=== PATIENT | male | born 1945 | race African-American/Black ===

== ENCOUNTER 2019-11-05 06:56 | Inpatient (IN) ==
[2019-11-05] MEDS ORDERED: HEPARIN DRIP 25,000 UNITS/500 ML PREMIX IV SCH (11:00)
[2019-11-05] MEDS ORDERED: DEXTROSE 50% 25 GM/50 ML VIAL IV PRN (11:21)
[2019-11-05] MEDS ORDERED: GLUCAGON 1 MG VIAL IM PRN (11:21)
[2019-11-05] MEDS ORDERED: CEFUROXIME INJ 1,500 MG in SYRINGE 1 EACH IV ONE (11:21)
[2019-11-05] MEDS: CHLORHEXIDINE 4% SOLN 118 ML BOTTLE TOP SCH ×2 (11:45→21:57)
[2019-11-05 12:20] LABS: ABG Base Excess 0.5 MMOL/L (-2.5-2.5); ABG HCO3 24.9 MMOL/L (20-26); ABG Oxygen Saturation 96.4 % (95-100); ABG PCO2 50.6 MM HG (35-48); ABG PH 7.334 (7.35-7.45); ABG PO2 86.8 MM HG (80-95); ABG TCO2 24.8 MMOL/L (23-27)
[2019-11-05 12:21] LABS: Basophils # 0.1 10*3/uL (0.0-0.2); Basophils % 0.6 % (0.0-0.8); Eosinophils # 0.3 10*3/uL (0.0-0.87); Eosinophils % 2.4 % (0.00-10.9); Hematocrit 29.3 VOL% (42.0-52.0); Hemoglobin 9.2 GM/DL (14.0-18.0); Immature Granulocytes % 0.3 %; Immature Granulocytes Absolute 0.03 #; Lymphocytes # 2.1 10*3/uL (1.4-4.0); Mean Corpuscular HGB Conc 31.4 GM/DL (32-36); Mean Corpuscular Volume 88.8 FL (87-102); Mean Platelet Volume 11.6 FL (9.6-12.0); Monocytes % 11.3 % (1.7-12.7); Neutrophils % 65.4 % (38.7-73.9); Platelet Count 180 T/CUMM (130-400); Red Cell Distribution Width 14.3 % (9.3-17.3); White Blood Count 10.7 T/CUMM (4-12)
[2019-11-05 12:41] LABS: Albumin 3.1 G/DL (3.4-5.0); Bilirubin,Total 0.5 MG/DL (0.2-1.0); CKMB % 4.5 %; Calcium 9.2 MG/DL (8.5-10.1); Total Protein 7.6 G/DL (6.4-8.3)
[2019-11-05 12:44] LABS: Troponin I 11.4 NG/ML (0.00-0.045)
[2019-11-05] MEDS ORDERED: PNEUMOCOCCAL VACCINE (13 VALENT) 0.5 ML SYRINGE IM ONE (12:51)
[2019-11-05] MEDS: INSULIN REGULAR 100 UNIT/ML SUBCUT SCH ×2 (13:55→18:13)
[2019-11-05] MEDS: PANTOPRAZOLE 40 MG VIAL IV SCH (20:52)
[2019-11-05] MEDS: CHLORHEXIDINE 0.12% ORAL RINSE 60 ML BOTTLE SWISH/SPIT SCH (21:58)
[2019-11-06] MEDS: INSULIN REGULAR 100 UNIT/ML SUBCUT SCH ×3 (00:20→22:40)
[2019-11-06 03:41] LABS: ABG Base Excess 0.7 MMOL/L (-2.5-2.5); ABG Oxygen Saturation 99.1 % (95-100); ABG PCO2 46.1 MM HG (35-48); ABG PH 7.364 (7.35-7.45); ABG TCO2 24.5 MMOL/L (23-27)
[2019-11-06] MEDS ORDERED: VANCOMYCIN 1,000 MG VIAL ONE (04:20)
[2019-11-06] MEDS ORDERED: VANCOMYCIN 500 MG VIAL ONE (04:20)
[2019-11-06] MEDS ORDERED: PAPAVERINE 60 MG/2 ML VIAL ONE (04:20)
[2019-11-06] MEDS: CHLORHEXIDINE 4% SOLN 118 ML BOTTLE TOP SCH ×2 (05:12→10:09)
[2019-11-06] MEDS ORDERED: CEFUROXIME INJ 1,500 MG in SYRINGE 1 EACH IV ONE (05:30)
[2019-11-06] MEDS ORDERED: MIDAZOLAM 10 MG/2 ML VIAL ONE (06:14)
[2019-11-06] MEDS ORDERED: VECURONIUM 10 MG VIAL IV ONE ×2 (06:14→14:09)
[2019-11-06] MEDS ORDERED: MINERAL OIL/PETROLATUM OPH OINT 3.5 GM TUBE ONE ×2 (06:14→14:08)
[2019-11-06] MEDS ORDERED: SUFentanil 250 MCG/5 ML AMP ONE (06:14)
[2019-11-06] MEDS ORDERED: FAMOTIDINE 20 MG/2 ML VIAL IV ONE (06:31)
[2019-11-06] MEDS ORDERED: diphenhydrAMINE 50 MG/1 ML VIAL ONE (06:31)
[2019-11-06 07:36] LABS: ABG Base Excess 0.3 MMOL/L (-2.5-2.5); ABG HCO3 24.7 MMOL/L (20-26); ABG Oxygen Saturation 99.9 % (95-100); ABG PCO2 41.9 MM HG (35-48); ABG PH 7.389 (7.35-7.45); ABG TCO2 23.5 MMOL/L (23-27); Glucose Heart Surgery 86 MG/DL (74-106); Hematocrit Heart Surgery 26.3 PERCENT (42-52); Hemoglobin Heart Surgery 8.5 G/DL (14.0-18.0); Ionized Calcium Arterial 1.13 MMOL/L (1.21-1.46); PCO2 Patient Temp Arterial 41.9 MMHG; PH Patient Temp Arterial 7.389; Patient Temperature 37 CELCIUS; Potassium Heart/CVR 4.2 MMOL/L (3.5-5.1); Sodium Heart/CVR 138 MMOL/L (135-145)
[2019-11-06] MEDS ORDERED: PHENYLEPHRINE DRIP 40 MG/250 ML PREMIX IV ONE (09:35)
[2019-11-06] MEDS ORDERED: NITROPRUSSIDE 50 MG/2 ML VIAL ONE (09:35)
[2019-11-06 09:36] LABS: Hematocrit Heart Surgery 18.9 PERCENT (42-52); PH Patient Temp Venous 7.394; PO2 Patient Temp Venous 39.4 MM HG; Potassium Heart/CVR 4.8 MMOL/L (3.5-5.1); VBG Base Excess -0.7 MEQ/L (0-4); VBG HCO3 23.7 MEQ/L (24-28); VBG Oxygen Saturation 79.5 %; VBG PH 7.365; VBG PO2 45.2 MMHG (17-40)
[2019-11-06] MEDS ORDERED: CALCIUM CHLORIDE 1,000 MG/10 ML SYRINGE IV ONE (09:36)
[2019-11-06] MEDS ORDERED: POTASSIUM CHLORIDE RIDER 100 ML IV ONE (09:36)
[2019-11-06] MEDS ORDERED: SODIUM BICARBONATE 50 MEQ/50 ML VIAL IV ONE ×3 (09:36→16:48)
[2019-11-06] MEDS ORDERED: ALBUMIN 5% 12.5 GM/250 ML VIAL IV ONE (09:36)
[2019-11-06] MEDS: SODIUM CHLORIDE 0.9% 1,000 ML IV SCH ×2 (10:09→22:40)
[2019-11-06] MEDS: CHLORHEXIDINE 0.12% ORAL RINSE 60 ML BOTTLE SWISH/SPIT SCH ×2 (10:09→20:50)
[2019-11-06] MEDS: PANTOPRAZOLE 40 MG VIAL IV SCH ×2 (10:09→20:50)
[2019-11-06 10:11] LABS: Hemoglobin Heart Surgery 6.7 G/DL (14.0-18.0); PCO2 Patient Temp Venous 30.6 MM HG; PH Patient Temp Venous 7.449; PO2 Patient Temp Venous 37.7 MM HG; Potassium Heart/CVR 4.3 MMOL/L (3.5-5.1); VBG Base Excess -2.2 MEQ/L (0-4); VBG HCO3 22.4 MEQ/L (24-28); VBG Oxygen Saturation 82.4 %; VBG PCO2 35.4 MMHG (41-51); VBG PH 7.405; VBG PO2 46.3 MMHG (17-40)
[2019-11-06 10:15] LABS: Apearance,Urine CLEAR (Clear); Bilirubin,Urine Negative (Negative); Blood, Urine Moderate mg/dL (Negative); Glucose,Urine (UA) Negative (Negative); Ketones,Urine Negative (Negative); Nitrite,Urine Negative (Negative); Protein,Urine 100 MG/DL; RBC,Urine 6 /HPF (0-4); Squamous Epithelial Cell,Urine Occasional /HPF (0-10); Urine Color Yellow (Yellow); Urine Specific Gravity 1.009 (1.001-1.035); Urine Urobilinogen < 2.0 EU/DL (0.2-1.0); WBC,Urine 5 /HPF (0-6)
[2019-11-06 10:38] LABS: PCO2 Patient Temp Venous 30.1 MM HG; PH Patient Temp Venous 7.435; PO2 Patient Temp Venous 33.9 MM HG; Potassium Heart/CVR 4.5 MMOL/L (3.5-5.1); VBG Base Excess -3.4 MEQ/L (0-4); VBG HCO3 21.3 MEQ/L (24-28); VBG Oxygen Saturation 73.4 %; VBG PCO2 33.1 MMHG (41-51); VBG PH 7.406
[2019-11-06 10:39] LABS: Hemoglobin Heart Surgery 6.4 G/DL (14.0-18.0)
[2019-11-06] MEDS ORDERED: MANNITOL 100 GM/500 ML BAG IV ONE (11:16)
[2019-11-06] MEDS ORDERED: DEXTROSE 5% KCL 20 MEQ 20 MEQ/1,000 ML BAG IV ONE (11:16)
[2019-11-06] MEDS ORDERED: LIDOCAINE 2% 5 ML VIAL ONE (11:16)
[2019-11-06] MEDS ORDERED: HEPARIN 10,000 UNIT/10 ML VIAL ONE (11:17)
[2019-11-06] MEDS ORDERED: PROTAMINE SULFATE 50 MG/5 ML VIAL IV ONE ×3 (11:17→13:13)
[2019-11-06] MEDS ORDERED: MAGNESIUM SULFATE 5 GM/10 ML VIAL IV ONE (11:17)
[2019-11-06] MEDS ORDERED: methylPREDNISolone SOD SUC 1,000 MG/8 ML VIAL ONE (11:17)
[2019-11-06] MEDS ORDERED: ALBUMIN 25% 25 GM/100 ML VIAL IV ONE (11:17)
[2019-11-06] MEDS ORDERED: FUROSEMIDE 20 MG/2 ML VIAL ONE (11:17)
[2019-11-06] MEDS ORDERED: PROTAMINE SULFATE 250 MG/25 ML VIAL IV ONE (11:17)
[2019-11-06] MEDS ORDERED: THROMBIN TOPICAL (RECOMBINANT) 5,000 UNIT VIAL TOP ONE (11:26)
[2019-11-06 11:31] LABS: ABG Base Excess -3.9 MMOL/L (-2.5-2.5); ABG HCO3 21.2 MMOL/L (20-26); ABG PCO2 29.7 MM HG (35-48); ABG PH 7.427 (7.35-7.45); ABG TCO2 17.8 MMOL/L (23-27); Glucose Heart Surgery 172 MG/DL (74-106); Hematocrit Heart Surgery 30.1 PERCENT (42-52); Hemoglobin Heart Surgery 9.7 G/DL (14.0-18.0); Ionized Calcium Arterial 1.17 MMOL/L (1.21-1.46); PCO2 Patient Temp Arterial 29.7 MMHG; PH Patient Temp Arterial 7.427; Patient Temperature 37 CELCIUS; Potassium Heart/CVR 4.5 MMOL/L (3.5-5.1); Sodium Heart/CVR 136 MMOL/L (135-145)
[2019-11-06] MEDS: SODIUM CHLORIDE 0.45% 1,000 ML IV SCH ×2 (13:00)
[2019-11-06] MEDS ORDERED: ACETAMINOPHEN 650 MG SUPP RECTAL PRN (13:07)
[2019-11-06] MEDS ORDERED: POTASSIUM CHLORIDE RIDER 20 MEQ in PREMIX 1 EACH IV PRN (13:07)
[2019-11-06] MEDS ORDERED: VECURONIUM 10 MG VIAL IV PRN ×2 (13:07)
[2019-11-06] MEDS ORDERED: INSULIN REGULAR 100 UNIT/ML IV PRN (13:07)
[2019-11-06] MEDS ORDERED: INSULIN REGULAR DRIP 100 ML IV SCH (13:07)
[2019-11-06] MEDS ORDERED: INSULIN REGULAR 100 UNIT/ML IV ONE (13:07)
[2019-11-06] MEDS ORDERED: MORPHINE 10 MG/1 ML VIAL IV PRN (13:07)
[2019-11-06] MEDS ORDERED: CHLORHEXIDINE 4% SOLN 118 ML BOTTLE TOP PRN (13:07)
[2019-11-06] MEDS ORDERED: MAGNESIUM SULF RIDER 2 GM in PREMIX 1 EACH IV PRN (13:07)
[2019-11-06] MEDS ORDERED: MAGNESIUM SULF RIDER 4 GM in PREMIX 1 EACH IV PRN (13:07)
[2019-11-06] MEDS ORDERED: ONDANSETRON 4 MG/2 ML VIAL IV PRN (13:07)
[2019-11-06] MEDS ORDERED: CALCIUM CHLORIDE 1,000 MG/10 ML SYRINGE IV PRN (13:07)
[2019-11-06] MEDS ORDERED: MIDAZOLAM 10 MG/2 ML VIAL IV PRN (13:07)
[2019-11-06] MEDS ORDERED: POTASSIUM CHLORIDE RIDER 10 MEQ in PREMIX 1 EACH IV PRN (13:07)
[2019-11-06] MEDS ORDERED: LACTATED RINGERS 250 ML IV PRN (13:07)
[2019-11-06] MEDS ORDERED: NITROPRUSSIDE 100 MG in DEXTROSE 5% 250 ML IV PRN (13:07)
[2019-11-06] MEDS ORDERED: DEXTROSE 10% 250 ML BAG IV PRN ×2 (13:13)
[2019-11-06 13:39] LABS: ABG Base Excess -3.7 MMOL/L (-2.5-2.5); ABG HCO3 21.3 MMOL/L (20-26); ABG Oxygen Saturation 99.3 % (95-100); ABG PCO2 36.4 MM HG (35-48); ABG PH 7.371 (7.35-7.45); Glucose Heart Surgery 170 MG/DL (74-106); Potassium Heart/CVR 4.4 MMOL/L (3.5-5.1)
[2019-11-06 13:41] LABS: Basophils % 0.2 % (0.0-0.8); Eosinophils # 0.1 10*3/uL (0.0-0.87); Eosinophils % 0.3 % (0.00-10.9); Hematocrit 20.3 VOL% (42.0-52.0); Hemoglobin 6.5 GM/DL (14.0-18.0); Immature Granulocytes % 1.2 %; Immature Granulocytes Absolute 0.18 #; Lymphocytes # 0.7 10*3/uL (1.4-4.0); Lymphocytes % 4.6 % (21.2-54.2); Mean Corpuscular Volume 89.8 FL (87-102); Mean Platelet Volume 11.2 FL (9.6-12.0); Neutrophils % 86.7 % (38.7-73.9); Platelet Count 193 T/CUMM (130-400); Red Blood Count 2.26 MC/CUMM (3.8-5.5); White Blood Count 14.9 T/CUMM (4-12)
[2019-11-06 13:54] LABS: INR 1.2; PT Patient Result 12.5 SECS (9.6-12.2); Partial Thromboplastin Time 26.1 SECS (20.8-36.0)
[2019-11-06] MEDS: PHENYLEPHRINE DRIP 40 MG/250 ML PREMIX IV PRN ×2 (13:58→22:00)
[2019-11-06] MEDS ORDERED: SEVOFLURANE 1 UNIT/15 MINUTE INH ONE (14:08)
[2019-11-06] MEDS ORDERED: ePHEDrine 50 MG/ML AMP ONE (14:08)
[2019-11-06] MEDS ORDERED: PHENYLEPHRINE DRIP 20 MG/250 ML PREMIX IV ONE (14:08)
[2019-11-06] MEDS ORDERED: HEPARIN/NACL 0.9% 2 UNITS/ML 500 ML IV ONE (14:08)
[2019-11-06] MEDS ORDERED: CALCIUM CHLORIDE 1,000 MG/10 ML VIAL IV ONE (14:08)
[2019-11-06] MEDS ORDERED: SODIUM CHLORIDE 0.9% 100 ML IV ONE (14:09)
[2019-11-06] MEDS ORDERED: SODIUM CHLORIDE 0.9% 2,000 ML IV ONE (14:09)
[2019-11-06] MEDS ORDERED: AMINOCAPROIC ACID 5,000 MG/20 ML VIAL ONE (14:09)
[2019-11-06] MEDS ORDERED: SODIUM CHLORIDE 0.9% 250 ML IV ONE (14:09)
[2019-11-06 14:12] LABS: Troponin I 12.1 NG/ML (0.00-0.045)
[2019-11-06 14:13] LABS: Albumin 2.5 G/DL (3.4-5.0); Bilirubin,Total 0.9 MG/DL (0.2-1.0); Calcium 9.6 MG/DL (8.5-10.1)
[2019-11-06] MEDS: MIDAZOLAM 2 MG/2 ML VIAL IV PRN ×3 (14:50→23:18)
[2019-11-06 15:24] LABS: Band Neutrophils 1 % (0-10); Lymphocytes 3 % (20-55); Platelet Estimate Adequate; Segmented Neutrophils 91 % (50-85); Total Cells Counted 100
[2019-11-06 16:06] LABS: ABG Base Excess -6.6 MMOL/L (-2.5-2.5); ABG HCO3 18.7 MMOL/L (20-26); ABG Oxygen Saturation 95.9 % (95-100); ABG PCO2 36.3 MM HG (35-48); ABG PH 7.329 (7.35-7.45); ABG TCO2 19.8 MMOL/L (23-27); Glucose Heart Surgery 137 MG/DL (74-106); Hemoglobin Heart Surgery 8.8 G/DL (14.0-18.0); Potassium Heart/CVR 4.4 MMOL/L (3.5-5.1)
[2019-11-06] MEDS: MORPHINE 4 MG/1 ML VIAL IV PRN ×2 (16:59→21:22)
[2019-11-06 20:14] LABS: ABG Base Excess -8.7 MMOL/L (-2.5-2.5); ABG HCO3 17.4 MMOL/L (20-26); ABG Oxygen Saturation 97.9 % (95-100); ABG PCO2 34.6 MM HG (35-48); ABG PH 7.299 (7.35-7.45); ABG TCO2 15.7 MMOL/L (23-27); Glucose Heart Surgery 116 MG/DL (74-106); Hematocrit Heart Surgery 29.2 PERCENT (42-52); Hemoglobin Heart Surgery 9.4 G/DL (14.0-18.0); Potassium Heart/CVR 5.1 MMOL/L (3.5-5.1)
[2019-11-06] MEDS ORDERED: SODIUM BICARBONATE 50 MEQ/50 ML VIAL IV PRN (20:30)
[2019-11-06] MEDS: CEFUROXIME INJ 1,500 MG in SYRINGE 1 EACH IV SCH (20:51)
[2019-11-06 21:22] LABS: CKMB % 7.8 %
[2019-11-06 21:24] LABS: Troponin I 19.8 NG/ML (0.00-0.045)
[2019-11-06 22:16] LABS: ABG Base Excess -4.6 MMOL/L (-2.5-2.5); ABG HCO3 20.6 MMOL/L (20-26); ABG Oxygen Saturation 98.4 % (95-100); ABG PH 7.343 (7.35-7.45); ABG TCO2 19.1 MMOL/L (23-27); Glucose Heart Surgery 89 MG/DL (74-106); Hematocrit Heart Surgery 29.1 PERCENT (42-52); Hemoglobin Heart Surgery 9.4 G/DL (14.0-18.0)
[2019-11-07 01:45] LABS: ABG Base Excess -6.1 MMOL/L (-2.5-2.5); ABG HCO3 19.4 MMOL/L (20-26); ABG PCO2 35.2 MM HG (35-48); ABG PH 7.341 (7.35-7.45); ABG TCO2 17.6 MMOL/L (23-27); Glucose Heart Surgery 134 MG/DL (74-106); Hematocrit Heart Surgery 28.9 PERCENT (42-52); Hemoglobin Heart Surgery 9.3 G/DL (14.0-18.0)
[2019-11-07 01:49] LABS: Potassium Heart/CVR 6.1 MMOL/L (3.5-5.1)
[2019-11-07] MEDS ORDERED: INSULIN REGULAR 100 UNIT/ML IV ONE (01:56)
[2019-11-07] MEDS ORDERED: SODIUM BICARBONATE 50 MEQ/50 ML VIAL IV ONE (01:57)
[2019-11-07] MEDS ORDERED: DEXTROSE 10% 250 ML BAG IV ONE (01:57)
[2019-11-07] MEDS: PHENYLEPHRINE DRIP 40 MG/250 ML PREMIX IV PRN ×2 (02:27→10:00)
[2019-11-07] MEDS: MORPHINE 4 MG/1 ML VIAL IV PRN ×5 (04:05→23:35)
[2019-11-07 04:45] LABS: ABG Base Excess -4.9 MMOL/L (-2.5-2.5); ABG HCO3 20.4 MMOL/L (20-26); ABG Oxygen Saturation 97.9 % (95-100); ABG PCO2 36.3 MM HG (35-48); ABG PH 7.351 (7.35-7.45); ABG TCO2 17.7 MMOL/L (23-27); Glucose Heart Surgery 150 MG/DL (74-106); Hemoglobin Heart Surgery 12.7 G/DL (14.0-18.0); Potassium Heart/CVR 4.7 MMOL/L (3.5-5.1)
[2019-11-07 04:56] LABS: Basophils % 0.1 % (0.0-0.8); Hematocrit 25.2 VOL% (42.0-52.0); Immature Granulocytes % 0.7 %; Immature Granulocytes Absolute 0.13 #; Lymphocytes # 1.3 10*3/uL (1.4-4.0); Lymphocytes % 7.1 % (21.2-54.2); Mean Corpuscular HGB Conc 33.7 GM/DL (32-36); Mean Corpuscular Volume 88.1 FL (87-102); Mean Platelet Volume 12.4 FL (9.6-12.0); NRBC # 0.03 10*3/uL; Neutrophils % 81.1 % (38.7-73.9); Platelet Count 163 T/CUMM (130-400); Red Cell Distribution Width 14.8 % (9.3-17.3); White Blood Count 17.8 T/CUMM (4-12)
[2019-11-07 05:01] LABS: Hemoglobin 8.5 GM/DL (14.0-18.0); Red Blood Count 2.86 MC/CUMM (3.8-5.5)
[2019-11-07 05:08] LABS: Albumin 2.4 G/DL (3.4-5.0); Bilirubin,Direct 0.22 MG/DL (0.0-0.20); Bilirubin,Total 0.5 MG/DL (0.2-1.0); Calcium 8.2 MG/DL (8.5-10.1); Osmolality,Calculated 299.4 MOS/KG (273-304); Total Protein 5.5 G/DL (6.4-8.3)
[2019-11-07 05:12] LABS: Troponin I 21.7 NG/ML (0.00-0.045)
[2019-11-07 05:17] LABS: INR 1.2; PT Patient Result 12.7 SECS (9.6-12.2); Partial Thromboplastin Time 26.8 SECS (20.8-36.0)
[2019-11-07] MEDS: ALBUMIN 5% 12.5 GM in PREMIX 1 EACH IV PRN ×2 (05:53→11:10)
[2019-11-07] MEDS ORDERED: GLUCAGON 1 MG VIAL IM PRN (06:30)
[2019-11-07] MEDS ORDERED: SODIUM CHLORIDE 0.9% 250 ML IV PRN (06:33)
[2019-11-07 07:53] LABS: ABG Base Excess -5.3 MMOL/L (-2.5-2.5); ABG HCO3 20.1 MMOL/L (20-26); ABG Oxygen Saturation 98.3 % (95-100); ABG PCO2 37.9 MM HG (35-48); ABG PH 7.334 (7.35-7.45); ABG TCO2 18.8 MMOL/L (23-27); Glucose Heart Surgery 132 MG/DL (74-106); Hematocrit Heart Surgery 25.6 PERCENT (42-52); Hemoglobin Heart Surgery 8.2 G/DL (14.0-18.0); Potassium Heart/CVR 5.4 MMOL/L (3.5-5.1)
[2019-11-07] MEDS: INSULIN REGULAR 100 UNIT/ML SUBCUT SCH ×4 (08:09→20:03)
[2019-11-07] MEDS: PANTOPRAZOLE 40 MG VIAL IV SCH ×2 (08:35→20:41)
[2019-11-07] MEDS: CEFUROXIME INJ 1,500 MG in SYRINGE 1 EACH IV SCH ×2 (08:36→20:41)
[2019-11-07] MEDS: CHLORHEXIDINE 0.12% ORAL RINSE 60 ML BOTTLE SWISH/SPIT SCH ×2 (08:40→20:41)
[2019-11-07 11:49] LABS: ABG Base Excess -0.4 MMOL/L (-2.5-2.5); ABG HCO3 24.1 MMOL/L (20-26); ABG Oxygen Saturation 98.5 % (95-100); ABG PH 7.433 (7.35-7.45); ABG TCO2 20.9 MMOL/L (23-27); Glucose Heart Surgery 128 MG/DL (74-106); Hematocrit Heart Surgery 34.8 PERCENT (42-52); Hemoglobin Heart Surgery 11.3 G/DL (14.0-18.0); Potassium Heart/CVR 3.9 MMOL/L (3.5-5.1)
[2019-11-07] MEDS: SODIUM CHLORIDE 0.45% 1,000 ML IV SCH ×2 (13:00)
[2019-11-07] MEDS: MIDAZOLAM 2 MG/2 ML VIAL IV PRN (13:34)
[2019-11-07] MEDS ORDERED: AMIODARONE 150 MG/3 ML VIAL ONE (13:36)
[2019-11-07] MEDS ORDERED: AMIODARONE INJ 150 MG in DEXTROSE 5% 100 ML IV ONE (13:46)
[2019-11-07] MEDS ORDERED: AMIODARONE 450 MG/9 ML VIAL IV ONE (13:49)
[2019-11-07] MEDS ORDERED: AMIODARONE INJ 450 MG in DEXTROSE 5% 241 ML IV SCH ×2 (14:00→20:00)
[2019-11-07 15:09] LABS: ABG HCO3 22.1 MMOL/L (20-26); ABG Oxygen Saturation 92.2 % (95-100); ABG PCO2 35.2 MM HG (35-48); ABG PH 7.416 (7.35-7.45); ABG PO2 67.9 MM HG (80-95); ABG TCO2 23.2 MMOL/L (23-27); Glucose Heart Surgery 137 MG/DL (74-106); Hemoglobin Heart Surgery 9.6 G/DL (14.0-18.0); Potassium Heart/CVR 3.8 MMOL/L (3.5-5.1)
[2019-11-07 16:22] LABS: CKMB % 4.6 %
[2019-11-07 16:37] LABS: ABG Base Excess -1.2 MMOL/L (-2.5-2.5); ABG HCO3 22.7 MMOL/L (20-26); ABG Oxygen Saturation 94.2 % (95-100); ABG PCO2 34.8 MM HG (35-48); ABG PH 7.433 (7.35-7.45); ABG PO2 75.1 MM HG (80-95); ABG TCO2 23.8 MMOL/L (23-27); Glucose Heart Surgery 126 MG/DL (74-106); Hemoglobin Heart Surgery 9.2 G/DL (14.0-18.0)
[2019-11-07 18:47] LABS: ABG Base Excess -1.5 MMOL/L (-2.5-2.5); ABG HCO3 23.1 MMOL/L (20-26); ABG Oxygen Saturation 95.3 % (95-100); ABG PCO2 36.7 MM HG (35-48); ABG PH 7.402 (7.35-7.45); ABG PO2 76.3 MM HG (80-95); ABG TCO2 20.3 MMOL/L (23-27); Glucose Heart Surgery 149 MG/DL (74-106); Hematocrit Heart Surgery 35.7 PERCENT (42-52); Hemoglobin Heart Surgery 11.6 G/DL (14.0-18.0); Potassium Heart/CVR 4.1 MMOL/L (3.5-5.1)
[2019-11-07 19:45] LABS: ABG Base Excess -1.3 MMOL/L (-2.5-2.5); ABG HCO3 23.2 MMOL/L (20-26); ABG Oxygen Saturation 93.7 % (95-100); ABG PCO2 40.8 MM HG (35-48); ABG PH 7.373 (7.35-7.45); ABG PO2 71.2 MM HG (80-95); ABG TCO2 21.9 MMOL/L (23-27)
[2019-11-08] MEDS: INSULIN REGULAR 100 UNIT/ML SUBCUT SCH ×6 (00:22→20:10)
[2019-11-08 03:55] LABS: Basophils % 0.1 % (0.0-0.8); Eosinophils % 0.1 % (0.00-10.9); Hematocrit 25.9 VOL% (42.0-52.0); Hemoglobin 8.3 GM/DL (14.0-18.0); Immature Granulocytes Absolute 0.15 #; Lymphocytes # 0.8 10*3/uL (1.4-4.0); Lymphocytes % 5.4 % (21.2-54.2); Mean Corpuscular Volume 91.5 FL (87-102); Mean Platelet Volume 11.9 FL (9.6-12.0); NRBC # 0.07 10*3/uL; Neutrophils % 81.4 % (38.7-73.9); Platelet Count 107 T/CUMM (130-400); Red Blood Count 2.83 MC/CUMM (3.8-5.5); Red Cell Distribution Width 15.3 % (9.3-17.3); White Blood Count 15.6 T/CUMM (4-12)
[2019-11-08 03:56] LABS: ABG Base Excess -1.7 MMOL/L (-2.5-2.5); ABG HCO3 22.9 MMOL/L (20-26); ABG Oxygen Saturation 93.5 % (95-100); ABG PCO2 43.9 MM HG (35-48); ABG PH 7.344 (7.35-7.45); ABG PO2 71.2 MM HG (80-95); ABG TCO2 22.3 MMOL/L (23-27); Glucose Heart Surgery 132 MG/DL (74-106); Hematocrit Heart Surgery 26.5 PERCENT (42-52); Hemoglobin Heart Surgery 8.5 G/DL (14.0-18.0); Potassium Heart/CVR 4.6 MMOL/L (3.5-5.1)
[2019-11-08 04:16] LABS: Albumin 2.7 G/DL (3.4-5.0); Bilirubin,Direct 0.23 MG/DL (0.0-0.20); Bilirubin,Total 0.5 MG/DL (0.2-1.0); Calcium 8.2 MG/DL (8.5-10.1); Osmolality,Calculated 286.8 MOS/KG (273-304); Total Protein 5.7 G/DL (6.4-8.3)
[2019-11-08] MEDS ORDERED: AMIODARONE 150 MG/3 ML VIAL ONE (04:48)
[2019-11-08] MEDS ORDERED: DILTIAZEM 50 MG/10 ML VIAL IV ONE (04:48)
[2019-11-08] MEDS ORDERED: DILTIAZEM 25 MG/5 ML VIAL IV ONE (04:49)
[2019-11-08] MEDS ORDERED: AMIODARONE INJ 50 MG in DEXTROSE 5% 100 ML IV ONE (05:00)
[2019-11-08] MEDS ORDERED: oxyCODONE/ACETAMINOPHEN 5-325 MG TABLET PO PRN (09:32)
[2019-11-08] MEDS: ALPRAZolam 0.5 MG TABLET PO SCH ×2 (09:55→20:11)
[2019-11-08] MEDS: AMIODARONE 200 MG TABLET PO SCH ×2 (09:56→20:11)
[2019-11-08] MEDS: PANTOPRAZOLE 40 MG VIAL IV SCH ×2 (09:56→20:11)
[2019-11-08] MEDS: ASPIRIN EC 81 MG TABLET PO SCH (09:56)
[2019-11-08] MEDS: CHLORHEXIDINE 0.12% ORAL RINSE 60 ML BOTTLE SWISH/SPIT SCH ×2 (10:00→20:11)
[2019-11-08] MEDS: ATORVASTATIN 80 MG TABLET PO SCH (20:11)
[2019-11-09] MEDS: INSULIN REGULAR 100 UNIT/ML SUBCUT SCH ×3 (00:08→09:12)
[2019-11-09] MEDS: MORPHINE 4 MG/1 ML VIAL IV PRN (00:36)
[2019-11-09 03:48] LABS: Basophils % 0.2 % (0.0-0.8); Eosinophils # 0.1 10*3/uL (0.0-0.87); Eosinophils % 0.4 % (0.00-10.9); Hematocrit 23.4 VOL% (42.0-52.0); Hemoglobin 7.8 GM/DL (14.0-18.0); Immature Granulocytes % 1.8 %; Immature Granulocytes Absolute 0.28 #; Lymphocytes # 0.9 10*3/uL (1.4-4.0); Lymphocytes % 5.7 % (21.2-54.2); Mean Corpuscular HGB Conc 33.3 GM/DL (32-36); Mean Corpuscular Volume 91.4 FL (87-102); Mean Platelet Volume 12.4 FL (9.6-12.0); Monocytes % 13.2 % (1.7-12.7); NRBC # 0.21 10*3/uL; Neutrophils % 78.7 % (38.7-73.9); Platelet Count 115 T/CUMM (130-400); Red Blood Count 2.56 MC/CUMM (3.8-5.5); Red Cell Distribution Width 15.7 % (9.3-17.3); White Blood Count 15.8 T/CUMM (4-12)
[2019-11-09 04:21] LABS: Albumin 2.6 G/DL (3.4-5.0); Bilirubin,Direct 0.19 MG/DL (0.0-0.20); Bilirubin,Total 0.5 MG/DL (0.2-1.0); Calcium 8.5 MG/DL (8.5-10.1); Total Protein 6.1 G/DL (6.4-8.3)
[2019-11-09] MEDS ORDERED: SODIUM CHLORIDE 0.9% 1,000 ML IV PRN (08:16)
[2019-11-09] MEDS: PANTOPRAZOLE 40 MG VIAL IV SCH (09:07)
[2019-11-09] MEDS: ALPRAZolam 0.5 MG TABLET PO SCH ×2 (09:10→20:44)
[2019-11-09] MEDS: ASPIRIN EC 81 MG TABLET PO SCH (09:10)
[2019-11-09] MEDS: COLCHICINE 0.6 MG CAPSULE PO SCH (09:10)
[2019-11-09] MEDS: CHOLECALCIFEROL 1,000 UNIT TABLET PO SCH (09:11)
[2019-11-09] MEDS: CHLORHEXIDINE 0.12% ORAL RINSE 60 ML BOTTLE SWISH/SPIT SCH ×2 (09:11→20:45)
[2019-11-09] MEDS: AMIODARONE 200 MG TABLET PO SCH (09:11)
[2019-11-09] MEDS ORDERED: SODIUM CHLOR 0.45% KCL 20 MEQ 20 MEQ/1,000 ML BAG IV SCH (10:45)
[2019-11-09] MEDS ORDERED: ALUMINUM/MAGNES/SIMETH MAX STR 30 ML UDCUP PO PRN (10:45)
[2019-11-09] MEDS ORDERED: GLUCAGON 1 MG VIAL IM PRN (10:45)
[2019-11-09] MEDS ORDERED: ONDANSETRON 4 MG/2 ML VIAL IV PRN (10:45)
[2019-11-09] MEDS ORDERED: POTASSIUM CHLORIDE 20 MEQ TABLET PO PRN (10:45)
[2019-11-09] MEDS ORDERED: ACETAMINOPHEN 325 MG TABLET PO PRN (10:45)
[2019-11-09] MEDS ORDERED: MAGNESIUM SULF RIDER 2 GM in PREMIX 1 EACH IV PRN (10:45)
[2019-11-09] MEDS ORDERED: MAGNESIUM SULF RIDER 4 GM in PREMIX 1 EACH IV PRN (10:45)
[2019-11-09] MEDS ORDERED: ZALEPLON 5 MG CAPSULE PO PRN (10:45)
[2019-11-09] MEDS ORDERED: DEXTROSE 10% 250 ML BAG IV PRN (10:45)
[2019-11-09] MEDS: SEVELAMER CARBONATE 800 MG TABLET PO SCH ×2 (12:56→17:51)
[2019-11-09] MEDS: MULTIVITAMIN (BEROCCA) TABLET PO SCH (14:47)
[2019-11-09] MEDS ORDERED: AMIODARONE INJ 100 MG in DEXTROSE 5% 100 ML IV ONE (17:22)
[2019-11-09] MEDS: CINACALCET 30 MG TABLET PO SCH (17:53)
[2019-11-09] MEDS: AMIODARONE INJ 450 MG in DEXTROSE 5% 241 ML IV SCH (18:06)
[2019-11-09] MEDS: ATORVASTATIN 80 MG TABLET PO SCH (20:44)
[2019-11-10 05:40] LABS: Basophils % 0.2 % (0.0-0.8); Eosinophils # 0.3 10*3/uL (0.0-0.87); Eosinophils % 2.5 % (0.00-10.9); Hematocrit 29.5 VOL% (42.0-52.0); Immature Granulocytes % 2.1 %; Immature Granulocytes Absolute 0.25 #; Lymphocytes # 1.1 10*3/uL (1.4-4.0); Lymphocytes % 8.7 % (21.2-54.2); Mean Corpuscular HGB Conc 32.9 GM/DL (32-36); Mean Corpuscular Volume 93.1 FL (87-102); Mean Platelet Volume 12.6 FL (9.6-12.0); Neutrophils % 72.5 % (38.7-73.9); Platelet Count 126 T/CUMM (130-400); Red Blood Count 3.17 MC/CUMM (3.8-5.5); Red Cell Distribution Width 15.3 % (9.3-17.3); White Blood Count 12.2 T/CUMM (4-12)
[2019-11-10 05:41] LABS: Hemoglobin 9.7 GM/DL (14.0-18.0)
[2019-11-10 05:58] LABS: Alanine Aminotransferase 370 U/L (16-61); Albumin 2.5 G/DL (3.4-5.0); Alkaline Phosphatase 50 U/L (45-117); Aspartate Amino Transferase 156 U/L (0-37); Bilirubin,Indirect 0.4 MG/DL (0.0-1.0); Blood Urea Nitrogen 55 MG/DL (7-18); Calcium 8.2 MG/DL (8.5-10.1); Estimated Glom Filtration Rate 8 ML/MIN; Glucose 94 MG/DL (74-106); Osmolality,Calculated 282.2 MOS/KG (273-304); Total Protein 6.4 G/DL (6.4-8.3)
[2019-11-10] MEDS ORDERED: FUROSEMIDE 40 MG/4 ML VIAL IV ONE (06:00)
[2019-11-10] MEDS: SEVELAMER CARBONATE 800 MG TABLET PO SCH ×3 (09:10→16:11)
[2019-11-10] MEDS: COLCHICINE 0.6 MG CAPSULE PO SCH (09:10)
[2019-11-10] MEDS: ASPIRIN EC 81 MG TABLET PO SCH (09:11)
[2019-11-10] MEDS: DOCUSATE SODIUM 100 MG CAPSULE PO SCH (09:11)
[2019-11-10] MEDS: METOPROLOL SUCCINATE XL 25 MG TABLET PO SCH (09:11)
[2019-11-10] MEDS: CHOLECALCIFEROL 1,000 UNIT TABLET PO SCH (09:11)
[2019-11-10] MEDS: PANTOPRAZOLE 40 MG TABLET PO SCH (09:11)
[2019-11-10] MEDS: FERROUS SULFATE 325 MG TABLET PO SCH (09:11)
[2019-11-10] MEDS: ALPRAZolam 0.5 MG TABLET PO SCH ×2 (09:11→20:39)
[2019-11-10] MEDS: AMIODARONE INJ 450 MG in DEXTROSE 5% 241 ML IV SCH (09:41)
[2019-11-10] MEDS: CHLORHEXIDINE 0.12% ORAL RINSE 60 ML BOTTLE SWISH/SPIT SCH ×2 (10:13→20:36)
[2019-11-10] MEDS: AMIODARONE 200 MG TABLET PO SCH ×2 (10:13→20:36)
[2019-11-10] MEDS: MULTIVITAMIN (BEROCCA) TABLET PO SCH (13:26)
[2019-11-10] MEDS: ALBUTEROL/IPRATROPIUM 3 ML NEB RESP TX SCH ×2 (14:52→20:08)
[2019-11-10] MEDS: CINACALCET 30 MG TABLET PO SCH (16:11)
[2019-11-10] MEDS: ATORVASTATIN 80 MG TABLET PO SCH (20:35)
[2019-11-11] MEDS: ALBUTEROL/IPRATROPIUM 3 ML NEB RESP TX SCH ×4 (00:32→19:48)
[2019-11-11 05:33] LABS: Basophils % 0.2 % (0.0-0.8); Eosinophils # 0.4 10*3/uL (0.0-0.87); Eosinophils % 2.9 % (0.00-10.9); Hemoglobin 9.4 GM/DL (14.0-18.0); Immature Granulocytes % 1.8 %; Immature Granulocytes Absolute 0.22 #; Lymphocytes # 1.4 10*3/uL (1.4-4.0); Lymphocytes % 11.2 % (21.2-54.2); Mean Corpuscular HGB Conc 32.4 GM/DL (32-36); Mean Corpuscular Volume 94.5 FL (87-102); Monocytes % 15.5 % (1.7-12.7); NRBC # 0.03 10*3/uL; Neutrophils % 68.4 % (38.7-73.9); Platelet Count 146 T/CUMM (130-400); Red Blood Count 3.07 MC/CUMM (3.8-5.5); Red Cell Distribution Width 15.7 % (9.3-17.3); White Blood Count 12.1 T/CUMM (4-12)
[2019-11-11 05:55] LABS: Alanine Aminotransferase 268 U/L (16-61); Albumin 2.5 G/DL (3.4-5.0); Alkaline Phosphatase 52 U/L (45-117); Aspartate Amino Transferase 86 U/L (0-37); Bilirubin,Indirect 0.7 MG/DL (0.0-1.0); Blood Urea Nitrogen 69 MG/DL (7-18); Calcium 8.1 MG/DL (8.5-10.1); Estimated Glom Filtration Rate 6 ML/MIN; Glucose 86 MG/DL (74-106); Osmolality,Calculated 286.2 MOS/KG (273-304); Total Protein 6.3 G/DL (6.4-8.3)
[2019-11-11] MEDS: METOPROLOL SUCCINATE XL 25 MG TABLET PO SCH (09:00)
[2019-11-11] MEDS: DOCUSATE SODIUM 100 MG CAPSULE PO SCH (09:01)
[2019-11-11] MEDS: PANTOPRAZOLE 40 MG TABLET PO SCH (09:01)
[2019-11-11] MEDS: SEVELAMER CARBONATE 800 MG TABLET PO SCH ×3 (09:01→17:15)
[2019-11-11] MEDS: AMIODARONE 200 MG TABLET PO SCH ×2 (09:01→21:14)
[2019-11-11] MEDS: CHOLECALCIFEROL 1,000 UNIT TABLET PO SCH (09:01)
[2019-11-11] MEDS: FERROUS SULFATE 325 MG TABLET PO SCH (09:01)
[2019-11-11] MEDS: ASPIRIN EC 81 MG TABLET PO SCH (09:01)
[2019-11-11] MEDS: COLCHICINE 0.6 MG CAPSULE PO SCH (09:01)
[2019-11-11] MEDS: ALPRAZolam 0.5 MG TABLET PO SCH ×2 (09:02→21:14)
[2019-11-11] MEDS ORDERED: BISACODYL 5 MG TABLET PO ONE (09:08)
[2019-11-11] MEDS: MAGNESIUM HYDROXIDE SUSP 30 ML UDCUP PO PRN (09:27)
[2019-11-11] MEDS: LOSARTAN 25 MG TABLET PO SCH (09:42)
[2019-11-11] MEDS: CHLORHEXIDINE 0.12% ORAL RINSE 60 ML BOTTLE SWISH/SPIT SCH ×2 (10:51→21:14)
[2019-11-11] MEDS: MULTIVITAMIN (BEROCCA) TABLET PO SCH (11:24)
[2019-11-11] MEDS: CINACALCET 30 MG TABLET PO SCH (17:15)
[2019-11-11] MEDS ORDERED: LACTULOSE 20 GM/30 ML UDCUP PO PRN (17:19)
[2019-11-11] MEDS ORDERED: ALBUTEROL/IPRATROPIUM 3 ML NEB RESP TX PRN ×2 (18:06→18:14)
[2019-11-11] MEDS ORDERED: FUROSEMIDE 40 MG/4 ML VIAL IV ONE (18:07)
[2019-11-11] MEDS: ATORVASTATIN 80 MG TABLET PO SCH (21:14)
[2019-11-12] MEDS: ALBUTEROL/IPRATROPIUM 3 ML NEB RESP TX SCH ×4 (00:17→19:24)
[2019-11-12 05:31] LABS: Calcium 7.9 MG/DL (8.5-10.1); Osmolality,Calculated 290.4 MOS/KG (273-304)
[2019-11-12] MEDS: COLCHICINE 0.6 MG CAPSULE PO SCH (08:03)
[2019-11-12] MEDS: LOSARTAN 25 MG TABLET PO SCH (08:03)
[2019-11-12] MEDS: CHOLECALCIFEROL 1,000 UNIT TABLET PO SCH (08:03)
[2019-11-12] MEDS: POLYETHYLENE GLYCOL POWDER 17 GM PACK PO SCH (08:04)
[2019-11-12] MEDS: DOCUSATE SODIUM 100 MG CAPSULE PO SCH (08:04)
[2019-11-12] MEDS: ALPRAZolam 0.5 MG TABLET PO SCH ×2 (08:04→21:19)
[2019-11-12] MEDS: CHLORHEXIDINE 0.12% ORAL RINSE 60 ML BOTTLE SWISH/SPIT SCH ×2 (08:04→21:19)
[2019-11-12] MEDS: ASPIRIN EC 81 MG TABLET PO SCH (08:04)
[2019-11-12] MEDS: SEVELAMER CARBONATE 800 MG TABLET PO SCH ×3 (08:04→16:23)
[2019-11-12] MEDS: FERROUS SULFATE 325 MG TABLET PO SCH (08:04)
[2019-11-12] MEDS: PANTOPRAZOLE 40 MG TABLET PO SCH (08:04)
[2019-11-12] MEDS: MULTIVITAMIN (BEROCCA) TABLET PO SCH (13:16)
[2019-11-12] MEDS: CINACALCET 30 MG TABLET PO SCH (16:23)
[2019-11-12] MEDS: ATORVASTATIN 80 MG TABLET PO SCH (21:19)
[2019-11-13] MEDS: ALBUTEROL/IPRATROPIUM 3 ML NEB RESP TX SCH ×4 (00:45→18:48)
[2019-11-13 05:37] LABS: Basophils % 0.1 % (0.0-0.8); Eosinophils # 0.4 10*3/uL (0.0-0.87); Eosinophils % 2.6 % (0.00-10.9); Hemoglobin 9.3 GM/DL (14.0-18.0); Immature Granulocytes % 1.5 %; Lymphocytes % 7.4 % (21.2-54.2); Mean Corpuscular Volume 97.1 FL (87-102); Mean Platelet Volume 11.4 FL (9.6-12.0); Monocytes % 12.9 % (1.7-12.7); Neutrophils % 75.5 % (38.7-73.9); Platelet Count 182 T/CUMM (130-400); Red Blood Count 3.09 MC/CUMM (3.8-5.5); Red Cell Distribution Width 15.4 % (9.3-17.3); White Blood Count 13.4 T/CUMM (4-12)
[2019-11-13 06:04] LABS: Alanine Aminotransferase 24 U/L (16-61); Alkaline Phosphatase 133 U/L (45-117); Aspartate Amino Transferase 30 U/L (0-37); Bilirubin,Indirect 0.5 MG/DL (0.0-1.0); Blood Urea Nitrogen 100 MG/DL (7-18); Calcium 8.3 MG/DL (8.5-10.1); Estimated Glom Filtration Rate 54 ML/MIN; Glucose 102 MG/DL (74-106); Osmolality,Calculated 281.5 MOS/KG (273-304); Total Protein 4.6 G/DL (6.4-8.3)
[2019-11-13 06:06] LABS: Troponin I 0.175 NG/ML (0.00-0.045)
[2019-11-13] MEDS: COLCHICINE 0.6 MG CAPSULE PO SCH (08:55)
[2019-11-13] MEDS: LOSARTAN 25 MG TABLET PO SCH (08:55)
[2019-11-13] MEDS: METOPROLOL SUCCINATE XL 25 MG TABLET PO SCH (08:55)
[2019-11-13] MEDS: CHOLECALCIFEROL 1,000 UNIT TABLET PO SCH (08:55)
[2019-11-13] MEDS: POLYETHYLENE GLYCOL POWDER 17 GM PACK PO SCH (08:55)
[2019-11-13] MEDS: FERROUS SULFATE 325 MG TABLET PO SCH (08:56)
[2019-11-13] MEDS: CHLORHEXIDINE 0.12% ORAL RINSE 60 ML BOTTLE SWISH/SPIT SCH ×2 (08:56→21:06)
[2019-11-13] MEDS: DOCUSATE SODIUM 100 MG CAPSULE PO SCH (08:56)
[2019-11-13] MEDS: SEVELAMER CARBONATE 800 MG TABLET PO SCH ×3 (08:56→16:14)
[2019-11-13] MEDS: AMIODARONE 200 MG TABLET PO SCH ×2 (08:56→21:05)
[2019-11-13] MEDS: ALPRAZolam 0.5 MG TABLET PO SCH ×2 (08:56→21:04)
[2019-11-13] MEDS: PANTOPRAZOLE 40 MG TABLET PO SCH (08:56)
[2019-11-13] MEDS: ASPIRIN EC 81 MG TABLET PO SCH (08:56)
[2019-11-13] MEDS ORDERED: DEXTROSE 10% 250 ML BAG IV PRN (09:43)
[2019-11-13] MEDS ORDERED: GLUCAGON 1 MG VIAL IM PRN (09:43)
[2019-11-13] MEDS ORDERED: TUBERCULIN SKIN TEST 0.1 ML SYRINGE INTRADERM ONE (09:47)
[2019-11-13] MEDS: MAGNESIUM HYDROXIDE SUSP 30 ML UDCUP PO PRN (10:54)
[2019-11-13] MEDS: INSULIN LISPRO 100 UNIT/ML SUBCUT SCH ×3 (12:57→21:06)
[2019-11-13] MEDS: MULTIVITAMIN (BEROCCA) TABLET PO SCH (12:57)
[2019-11-13] MEDS: CINACALCET 30 MG TABLET PO SCH (16:14)
[2019-11-13] MEDS: ATORVASTATIN 80 MG TABLET PO SCH (21:04)
[2019-11-14] MEDS: ALBUTEROL/IPRATROPIUM 3 ML NEB RESP TX SCH ×4 (00:40→18:53)
[2019-11-14 04:42] LABS: Basophils % 0.2 % (0.0-0.8); Eosinophils # 0.3 10*3/uL (0.0-0.87); Eosinophils % 2.6 % (0.00-10.9); Hematocrit 30.4 VOL% (42.0-52.0); Hemoglobin 9.8 GM/DL (14.0-18.0); Immature Granulocytes % 1.2 %; Immature Granulocytes Absolute 0.16 #; Lymphocytes % 7.6 % (21.2-54.2); Mean Corpuscular HGB Conc 32.2 GM/DL (32-36); Mean Corpuscular Volume 93.8 FL (87-102); Mean Platelet Volume 11.3 FL (9.6-12.0); Monocytes % 11.8 % (1.7-12.7); Neutrophils % 76.6 % (38.7-73.9); Platelet Count 213 T/CUMM (130-400); Red Blood Count 3.24 MC/CUMM (3.8-5.5); Red Cell Distribution Width 15.2 % (9.3-17.3); White Blood Count 12.9 T/CUMM (4-12)
[2019-11-14 05:05] LABS: Osmolality,Calculated 293.1 MOS/KG (273-304)
[2019-11-14 05:12] LABS: Alanine Aminotransferase 124 U/L (16-61); Albumin 2.5 G/DL (3.4-5.0); Alkaline Phosphatase 52 U/L (45-117); Aspartate Amino Transferase 47 U/L (0-37); Bilirubin,Indirect 0.7 MG/DL (0.0-1.0); Blood Urea Nitrogen 81 MG/DL (7-18); Calcium 7.9 MG/DL (8.5-10.1); Estimated Glom Filtration Rate 5 ML/MIN; Glucose 80 MG/DL (74-106); Osmolality,Calculated 292.1 MOS/KG (273-304); Total Protein 6.6 G/DL (6.4-8.3)
[2019-11-14] MEDS: INSULIN LISPRO 100 UNIT/ML SUBCUT SCH ×4 (08:31→21:08)
[2019-11-14] MEDS: SEVELAMER CARBONATE 800 MG TABLET PO SCH ×3 (09:06→17:28)
[2019-11-14] MEDS ORDERED: METOPROLOL TARTRATE 5 MG/5 ML VIAL IV ONE (13:13)
[2019-11-14] MEDS: CHLORHEXIDINE 0.12% ORAL RINSE 60 ML BOTTLE SWISH/SPIT SCH ×2 (13:20→21:09)
[2019-11-14] MEDS: COLCHICINE 0.6 MG CAPSULE PO SCH (13:21)
[2019-11-14] MEDS: LOSARTAN 25 MG TABLET PO SCH (13:21)
[2019-11-14] MEDS: DOCUSATE SODIUM 100 MG CAPSULE PO SCH (13:22)
[2019-11-14] MEDS: PANTOPRAZOLE 40 MG TABLET PO SCH (13:22)
[2019-11-14] MEDS: AMIODARONE 200 MG TABLET PO SCH ×2 (13:23→21:08)
[2019-11-14] MEDS: METOPROLOL SUCCINATE XL 25 MG TABLET PO SCH (13:23)
[2019-11-14] MEDS: FERROUS SULFATE 325 MG TABLET PO SCH (13:23)
[2019-11-14] MEDS: ALPRAZolam 0.5 MG TABLET PO SCH ×2 (13:23→21:08)
[2019-11-14] MEDS: ASPIRIN EC 81 MG TABLET PO SCH (13:23)
[2019-11-14] MEDS: CHOLECALCIFEROL 1,000 UNIT TABLET PO SCH (13:23)
[2019-11-14] MEDS: POLYETHYLENE GLYCOL POWDER 17 GM PACK PO SCH (13:31)
[2019-11-14] MEDS: MULTIVITAMIN (BEROCCA) TABLET PO SCH (13:32)
[2019-11-14] MEDS: CINACALCET 30 MG TABLET PO SCH (17:28)
[2019-11-14] MEDS: ATORVASTATIN 80 MG TABLET PO SCH (21:08)
[2019-11-15] MEDS: ALBUTEROL/IPRATROPIUM 3 ML NEB RESP TX SCH ×4 (01:59→20:00)
[2019-11-15 05:05] LABS: Basophils % 0.2 % (0.0-0.8); Eosinophils # 0.3 10*3/uL (0.0-0.87); Eosinophils % 2.7 % (0.00-10.9); Immature Granulocytes % 0.9 %; Immature Granulocytes Absolute 0.11 #; Lymphocytes # 0.9 10*3/uL (1.4-4.0); Lymphocytes % 7.6 % (21.2-54.2); Mean Corpuscular HGB Conc 31.3 GM/DL (32-36); Mean Corpuscular Volume 96.1 FL (87-102); Mean Platelet Volume 10.8 FL (9.6-12.0); Monocytes % 13.8 % (1.7-12.7); Neutrophils % 74.8 % (38.7-73.9); Platelet Count 253 T/CUMM (130-400); Red Blood Count 3.33 MC/CUMM (3.8-5.5); Red Cell Distribution Width 14.9 % (9.3-17.3); White Blood Count 12.1 T/CUMM (4-12)
[2019-11-15 05:46] LABS: Blood Urea Nitrogen 54 MG/DL (7-18); Estimated Glom Filtration Rate 7 ML/MIN; Glucose 99 MG/DL (74-106); Osmolality,Calculated 284.1 MOS/KG (273-304)
[2019-11-15 05:47] LABS: Troponin I 0.989 NG/ML (0.00-0.045)
[2019-11-15 06:46] LABS: Calcium 8.1 MG/DL (8.5-10.1); Osmolality,Calculated 283.2 MOS/KG (273-304)
[2019-11-15] MEDS: INSULIN LISPRO 100 UNIT/ML SUBCUT SCH ×4 (08:53→21:40)
[2019-11-15] MEDS: AMIODARONE 200 MG TABLET PO SCH ×2 (08:56→21:39)
[2019-11-15] MEDS: METOPROLOL SUCCINATE XL 50 MG TABLET PO SCH (08:56)
[2019-11-15] MEDS: LOSARTAN 25 MG TABLET PO SCH (08:56)
[2019-11-15] MEDS: ALPRAZolam 0.5 MG TABLET PO SCH ×2 (08:56→21:39)
[2019-11-15] MEDS: CHOLECALCIFEROL 1,000 UNIT TABLET PO SCH (08:56)
[2019-11-15] MEDS: COLCHICINE 0.6 MG CAPSULE PO SCH (08:56)
[2019-11-15] MEDS: PANTOPRAZOLE 40 MG TABLET PO SCH (08:56)
[2019-11-15] MEDS: DOCUSATE SODIUM 100 MG CAPSULE PO SCH (08:57)
[2019-11-15] MEDS: FERROUS SULFATE 325 MG TABLET PO SCH (08:57)
[2019-11-15] MEDS: POLYETHYLENE GLYCOL POWDER 17 GM PACK PO SCH (08:57)
[2019-11-15] MEDS: CHLORHEXIDINE 0.12% ORAL RINSE 60 ML BOTTLE SWISH/SPIT SCH ×2 (08:57→21:39)
[2019-11-15] MEDS: SEVELAMER CARBONATE 800 MG TABLET PO SCH ×3 (08:57→17:16)
[2019-11-15] MEDS: ASPIRIN EC 81 MG TABLET PO SCH (08:57)
[2019-11-15] MEDS: MEROPENEM 500 MG in SODIUM CHLORIDE 0.9% 100 ML IV SCH (11:45)
[2019-11-15] MEDS: MULTIVITAMIN (BEROCCA) TABLET PO SCH (11:45)
[2019-11-15] MEDS: CINACALCET 30 MG TABLET PO SCH (17:16)
[2019-11-15] MEDS: ATORVASTATIN 80 MG TABLET PO SCH (21:39)
[2019-11-16] MEDS: ALBUTEROL/IPRATROPIUM 3 ML NEB RESP TX SCH ×4 (00:25→21:00)
[2019-11-16 05:30] LABS: Basophils % 0.2 % (0.0-0.8); Eosinophils # 0.3 10*3/uL (0.0-0.87); Eosinophils % 2.7 % (0.00-10.9); Hematocrit 30.5 VOL% (42.0-52.0); Hemoglobin 9.4 GM/DL (14.0-18.0); Immature Granulocytes % 0.9 %; Lymphocytes % 9.3 % (21.2-54.2); Mean Corpuscular HGB Conc 30.8 GM/DL (32-36); Mean Corpuscular Volume 95.3 FL (87-102); Mean Platelet Volume 11.2 FL (9.6-12.0); Monocytes % 15.3 % (1.7-12.7); Neutrophils % 71.6 % (38.7-73.9); Platelet Count 251 T/CUMM (130-400); Red Cell Distribution Width 14.9 % (9.3-17.3); White Blood Count 11.1 T/CUMM (4-12)
[2019-11-16 06:09] LABS: Albumin 2.3 G/DL (3.4-5.0); Bilirubin,Total 0.7 MG/DL (0.2-1.0); Calcium 7.9 MG/DL (8.5-10.1); Osmolality,Calculated 284.2 MOS/KG (273-304); Total Protein 6.6 G/DL (6.4-8.3)
[2019-11-16] MEDS: INSULIN LISPRO 100 UNIT/ML SUBCUT SCH ×3 (08:32→16:51)
[2019-11-16] MEDS: SEVELAMER CARBONATE 800 MG TABLET PO SCH ×3 (08:53→17:14)
[2019-11-16] MEDS: COLCHICINE 0.6 MG CAPSULE PO SCH (08:53)
[2019-11-16] MEDS: LOSARTAN 25 MG TABLET PO SCH (08:53)
[2019-11-16] MEDS: DOCUSATE SODIUM 100 MG CAPSULE PO SCH (08:53)
[2019-11-16] MEDS: FERROUS SULFATE 325 MG TABLET PO SCH (08:53)
[2019-11-16] MEDS: ASPIRIN EC 81 MG TABLET PO SCH (08:53)
[2019-11-16] MEDS: CHOLECALCIFEROL 1,000 UNIT TABLET PO SCH (08:54)
[2019-11-16] MEDS: AMIODARONE 200 MG TABLET PO SCH ×2 (08:54→21:02)
[2019-11-16] MEDS: ALPRAZolam 0.5 MG TABLET PO SCH ×2 (08:54→21:03)
[2019-11-16] MEDS: METOPROLOL SUCCINATE XL 50 MG TABLET PO SCH (08:54)
[2019-11-16] MEDS: POLYETHYLENE GLYCOL POWDER 17 GM PACK PO SCH (09:04)
[2019-11-16] MEDS: PANTOPRAZOLE 40 MG TABLET PO SCH (09:06)
[2019-11-16] MEDS: MULTIVITAMIN (BEROCCA) TABLET PO SCH (11:58)
[2019-11-16] MEDS: CHLORHEXIDINE 0.12% ORAL RINSE 60 ML BOTTLE SWISH/SPIT SCH ×2 (13:23→21:03)
[2019-11-16] MEDS: CINACALCET 30 MG TABLET PO SCH (17:13)
[2019-11-16] MEDS: MEROPENEM 500 MG in SODIUM CHLORIDE 0.9% 100 ML IV SCH (17:15)
[2019-11-16] MEDS: ATORVASTATIN 80 MG TABLET PO SCH (21:02)
[2019-11-17] MEDS: ALBUTEROL/IPRATROPIUM 3 ML NEB RESP TX SCH ×4 (02:01→20:04)
[2019-11-17 05:31] LABS: Basophils % 0.2 % (0.0-0.8); Eosinophils # 0.3 10*3/uL (0.0-0.87); Eosinophils % 2.1 % (0.00-10.9); Hematocrit 28.9 VOL% (42.0-52.0); Hemoglobin 8.9 GM/DL (14.0-18.0); Immature Granulocytes % 0.7 %; Immature Granulocytes Absolute 0.08 #; Lymphocytes % 8.5 % (21.2-54.2); Mean Corpuscular HGB Conc 30.8 GM/DL (32-36); Mean Platelet Volume 10.3 FL (9.6-12.0); Monocytes % 12.6 % (1.7-12.7); Neutrophils % 75.9 % (38.7-73.9); Platelet Count 251 T/CUMM (130-400); Red Blood Count 3.01 MC/CUMM (3.8-5.5); Red Cell Distribution Width 14.7 % (9.3-17.3); White Blood Count 11.6 T/CUMM (4-12)
[2019-11-17 05:54] LABS: Albumin 2.3 G/DL (3.4-5.0); Bilirubin,Total 0.6 MG/DL (0.2-1.0); Calcium 7.9 MG/DL (8.5-10.1); Osmolality,Calculated 276.4 MOS/KG (273-304); Total Protein 6.6 G/DL (6.4-8.3)
[2019-11-17] MEDS: LOSARTAN 25 MG TABLET PO SCH (08:30)
[2019-11-17] MEDS: METOPROLOL SUCCINATE XL 50 MG TABLET PO SCH (08:30)
[2019-11-17] MEDS: COLCHICINE 0.6 MG CAPSULE PO SCH (08:31)
[2019-11-17] MEDS: CHOLECALCIFEROL 1,000 UNIT TABLET PO SCH (08:31)
[2019-11-17] MEDS: SEVELAMER CARBONATE 800 MG TABLET PO SCH ×3 (08:31→16:09)
[2019-11-17] MEDS: PANTOPRAZOLE 40 MG TABLET PO SCH (08:31)
[2019-11-17] MEDS: ASPIRIN EC 81 MG TABLET PO SCH (08:31)
[2019-11-17] MEDS: AMIODARONE 200 MG TABLET PO SCH ×2 (08:31→21:02)
[2019-11-17] MEDS: FERROUS SULFATE 325 MG TABLET PO SCH (08:31)
[2019-11-17] MEDS: DOCUSATE SODIUM 100 MG CAPSULE PO SCH (08:32)
[2019-11-17] MEDS: POLYETHYLENE GLYCOL POWDER 17 GM PACK PO SCH (08:33)
[2019-11-17] MEDS: ALPRAZolam 0.5 MG TABLET PO SCH ×2 (10:07→21:02)
[2019-11-17] MEDS: CHLORHEXIDINE 0.12% ORAL RINSE 60 ML BOTTLE SWISH/SPIT SCH ×2 (10:08→21:02)
[2019-11-17] MEDS: MULTIVITAMIN (BEROCCA) TABLET PO SCH (11:49)
[2019-11-17] MEDS: MEROPENEM 500 MG in SODIUM CHLORIDE 0.9% 100 ML IV SCH (11:49)
[2019-11-17] MEDS: CINACALCET 30 MG TABLET PO SCH (16:09)
[2019-11-17] MEDS: ATORVASTATIN 80 MG TABLET PO SCH (21:02)
[2019-11-18] MEDS: ALBUTEROL/IPRATROPIUM 3 ML NEB RESP TX SCH ×2 (00:56→06:59)
[2019-11-18 05:06] LABS: Basophils # 0.1 10*3/uL (0.0-0.2); Basophils % 0.4 % (0.0-0.8); Eosinophils # 0.2 10*3/uL (0.0-0.87); Eosinophils % 1.7 % (0.00-10.9); Hematocrit 30.4 VOL% (42.0-52.0); Hemoglobin 9.5 GM/DL (14.0-18.0); Immature Granulocytes % 0.6 %; Immature Granulocytes Absolute 0.08 #; Lymphocytes # 1.1 10*3/uL (1.4-4.0); Lymphocytes % 8.2 % (21.2-54.2); Mean Corpuscular HGB Conc 31.3 GM/DL (32-36); Mean Corpuscular Volume 95.3 FL (87-102); Mean Platelet Volume 10.6 FL (9.6-12.0); Monocytes % 11.7 % (1.7-12.7); Neutrophils % 77.4 % (38.7-73.9); Platelet Count 290 T/CUMM (130-400); Red Blood Count 3.19 MC/CUMM (3.8-5.5); Red Cell Distribution Width 14.6 % (9.3-17.3); White Blood Count 13.3 T/CUMM (4-12)
[2019-11-18 05:19] LABS: Albumin 2.6 G/DL (3.4-5.0); Bilirubin,Total 0.6 MG/DL (0.2-1.0); Calcium 8.2 MG/DL (8.5-10.1); Osmolality,Calculated 281.1 MOS/KG (273-304)
[2019-11-18] MEDS: ASPIRIN EC 81 MG TABLET PO SCH (08:17)
[2019-11-18] MEDS: ALPRAZolam 0.5 MG TABLET PO SCH (08:17)
[2019-11-18] MEDS: METOPROLOL SUCCINATE XL 50 MG TABLET PO SCH (08:17)
[2019-11-18] MEDS: CHOLECALCIFEROL 1,000 UNIT TABLET PO SCH (08:17)
[2019-11-18] MEDS: PANTOPRAZOLE 40 MG TABLET PO SCH (08:17)
[2019-11-18] MEDS: AMIODARONE 200 MG TABLET PO SCH (08:17)
[2019-11-18] MEDS: CHLORHEXIDINE 0.12% ORAL RINSE 60 ML BOTTLE SWISH/SPIT SCH (08:18)
[2019-11-18] MEDS: LOSARTAN 25 MG TABLET PO SCH (08:18)
[2019-11-18] MEDS: SEVELAMER CARBONATE 800 MG TABLET PO SCH ×2 (08:18→13:51)
[2019-11-18] MEDS: COLCHICINE 0.6 MG CAPSULE PO SCH (08:18)
[2019-11-18] MEDS: FERROUS SULFATE 325 MG TABLET PO SCH (08:18)
[2019-11-18] MEDS: DOCUSATE SODIUM 100 MG CAPSULE PO SCH (08:18)
[2019-11-18] MEDS: POLYETHYLENE GLYCOL POWDER 17 GM PACK PO SCH (08:34)
[2019-11-18 13:02] VITALS: BP 132/77
[2019-11-18] MEDS ORDERED: LEVOFLOXACIN 500 MG TABLET PO ONE (13:46)
[2019-11-18] MEDS: MULTIVITAMIN (BEROCCA) TABLET PO SCH (13:51)
[2019-11-18] MEDS: MEROPENEM 500 MG in SODIUM CHLORIDE 0.9% 100 ML IV SCH (15:08)
== END 2019-11-18 15:15 | disposition home health service (06) | DRG 235 ==
LOC: N.ICU 11:02 → N.CVR 11-06 12:34 → N.ICU 11-08 07:10 → N.TELES 11-09 15:21